=== PATIENT | male | born 1945 | race Caucasian/White ===

== ENCOUNTER → 2019-09-23 | Outpatient (CLI) | payer MEDICARE ==
[~2019-09-23] MED LIST: CHOL200024 PO; CYAN10002 SC; DOXA1TAB2 PO; OMEP40CA42 PO; TADA5TAB2 PO; TIOT18CA INH; USTE90DI IV
== END | disposition home or self-care (01) ==
LOC: STAR 13:13
PROVIDERS: ATTEND Otolaryngology
DX: Z01.818 Encounter for other preprocedural examination (principal); J32.0 Chronic maxillary sinusitis; F10.20 Alcohol dependence, uncomplicated
CPT/HCPCS: 93005

== ENCOUNTER 2019-09-28 06:04 | Day surgery (SDC) | payer MEDICARE ==
[~2019-09-28] VITALS: Ht 198.1 cm; Wt 90.0 kg
[2019-09-28] MEDS ORDERED: LACTATED RINGERS 1,000 ML IV SCH (06:49)
[2019-09-28 06:53] VITALS: BP 124/81
[2019-09-28] MEDS ORDERED: BACITRACIN 50,000 UNIT ONE (06:58)
[2019-09-28] MEDS ORDERED: BACITRACIN OINT 500U/GM, 15 GM ONE (06:58)
[2019-09-28] MEDS ORDERED: LIDOCAINE 1%-EPI 1:100K, 20ML ONE (06:58)
[2019-09-28] MEDS ORDERED: EPINEPHRINE TOPICAL SOLN 1 MG/ML, 30ML ONE (06:58)
[2019-09-28] MEDS ORDERED: OXYMETAZOLINE NASAL SPRAY 0.05%, 15ML ONE (06:58)
[2019-09-28] MEDS ORDERED: FLUORESCEIN SODIUM 500 MG/5 ML ONE (06:58)
[2019-09-28] MEDS ORDERED: LIDOCAINE-MPF 1%, 2ML INFIL ONE (07:00)
[2019-09-28] MEDS ORDERED: ACETAMINOPHEN 500 MG TABLET PO ONE (07:30)
[2019-09-28] MEDS ORDERED: GABAPENTIN 300 MG CAPSULE PO ONE (07:30)
[2019-09-28] MEDS ORDERED: CLINDAMYCIN 150 MG/ML, 6ML ONE (08:08)
[2019-09-28] MEDS ORDERED: FENTANYL PF 250 MCG/5ML ONE (08:11)
[2019-09-28] MEDS ORDERED: HALOPERIDOL 5 MG/ML IV PRN (08:30)
[2019-09-28] MEDS ORDERED: ALBUTEROL/IPRATROPIUM 2.5MG/0.5MG, 3 ML NPPB PRN (08:30)
[2019-09-28] MEDS ORDERED: PROMETHAZINE 25 MG/ML, 1ML IV PRN (08:30)
[2019-09-28] MEDS ORDERED: hydrALAzine 20 MG/ML, 1ML IV PRN (08:30)
[2019-09-28] MEDS ORDERED: ALBUTEROL SULFATE 2.5 MG/3 ML NPPB PRN (08:30)
[2019-09-28] MEDS ORDERED: LABETALOL 5MG/ML, 20ML IV PRN (08:30)
[2019-09-28] MEDS ORDERED: OXYcodone 5 MG/5 ML ORAL.SOL UDC PO PRN ×2 (08:30→10:00)
[2019-09-28] MEDS ORDERED: MEPERIDINE/PF 25MG/ML,1ML IVPush PRN (08:30)
[2019-09-28] MEDS ORDERED: HYDROmorphone 2 MG/ML, 1ML IVPush PRN ×2 (08:30→10:00)
[2019-09-28] MEDS ORDERED: FENTANYL PF 100 MCG/2ML IV PRN (08:30)
[2019-09-28] MEDS ORDERED: CEFAZOLIN 1,000 MG ONE (09:11)
[2019-09-28] MEDS ORDERED: ROCURONIUM 10MG/ML,5ML ONE (09:11)
[2019-09-28] MEDS ORDERED: GLYCOPYRROLATE 0.2MG/1ML, 5ML ONE (09:11)
[2019-09-28] MEDS ORDERED: ONDANSETRON 2MG/ML, 2ML ONE (09:11)
[2019-09-28] MEDS ORDERED: PROPOFOL 10 MG/ML, 20ML ONE (09:11)
[2019-09-28] MEDS ORDERED: NEOSTIGMINE 1 MG/ML, 10ML ONE (09:11)
[2019-09-28] MEDS ORDERED: SUCCINYLCHOLINE 20 MG/ML, 10ML ONE (09:11)
[2019-09-28] MEDS ORDERED: DEXAMETHASONE 4 MG/ML, 1ML ONE (09:11)
== END 2019-09-28 10:55 | disposition home or self-care (01) ==
LOC: OR 06:04 → OUT 10:55
PROVIDERS: ATTEND Otolaryngology
DX: J01.01 Acute recurrent maxillary sinusitis (principal); K50.90 Crohn's disease, unspecified, without complications; J44.9 Chronic obstructive pulmonary disease, unspecified; K21.9 Gastro-esophageal reflux disease without esophagitis; Z72.89 Other problems related to lifestyle; Z79.899 Other long term (current) drug therapy; Z88.0 Allergy status to penicillin; Z80.9 Family history of malignant neoplasm, unspecified
CPT/HCPCS: 31255; 31267; 87070; 87075; 87205; 88304; 88305; J0330; J0690; J1100; J2405; J2704; J2710; J3010; J3490; J7120; 87077